=== PATIENT | male | born 1975 | race Caucasian/White ===

== ENCOUNTER → 2018-02-18 | Outpatient (CLI) | payer MEDICAID ==
[2018-02-18 17:32] LABS: Basophils % (A) 1 %; Eosinophils # (A) 0.2 k/uL (0-0.7); Eosinophils % (A) 3 %; HCT 46.3 % (39.0-53.0); HGB 15.8 gm/dL (13.0-17.5); Lymphocytes # (A) 1.2 k/uL (1.0-4.8); Lymphocytes % (A) 24 %; MCH 30.8 pg (25.0-35.0); MCHC 34.2 g/dL (31.0-37.0); MCV 89.9 fL (80.0-100.0); Monocytes # (A) 0.3 k/uL (0-1.0); Monocytes % (A) 7 %; Neutrophils # (A) 3.3 k/uL (1.3-7.7); Neutrophils % (A) 64 %; Platelet Count 187 k/uL (150-450); RBC 5.14 m/uL (4.30-5.90); RDW 13.8 % (11.5-15.5); WBC 5.1 k/uL (3.8-10.6)
[2018-02-19 02:57] LABS: Anion Gap 7.2 mmol/L (4.00-12.00); Calcium 9.4 mg/dL (8.7-10.3); Carbon Dioxide 25.8 mmol/L (21.6-31.8); Potassium 3.7 mmol/L (3.5-5.5)
== END | disposition home or self-care (01) ==
LOC: LABWHC1 16:42
PROVIDERS: ATTEND Urology
DX: Z01.812 Encounter for preprocedural laboratory examination (principal); N43.0 Encysted hydrocele
CPT/HCPCS: 36415; 80048; 85025

== ENCOUNTER 2018-02-25 07:57 | Day surgery (SDC) | payer MEDICAID ==
[2018-02-23 13:56] VITALS: BMI 30.1
--- NOTE | 2018-02-25 06:05 | P.GSHP ---
History of Present Illness H&P Date: 02/22/18 Chief Complaint: Scrotal swelling The patient is a 42-year-old white male with a large left hydrocele, which he developed approximately one year ago. He is symptomatic and he has thus elected to undergo surgical correction. Ultrasound also showed the presence of a smaller right hydrocele, which is not detectable on examination. - Cardiovascular Cardiovascular: Reports high blood pressure - Respiratory Respiratory: Reports cough, Reports dyspnea, Reports wheezing Past Medical History Past Medical History: Asthma, Hypertension - Past Family History Mother Family Medical History: No Reported History Medications and Allergies Home Medications Medication Instructions Recorded Confirmed Type Albuterol Sulfate [Proair Hfa] 1 - 2 puff INHALATION Q6HR PRN 02/23/18 02/23/18 History Budesonide/Formoterol Fumarate 2 puff INHALATION BID 02/23/18 02/23/18 History [Symbicort 160-4.5 Mcg Inhaler] Lisinopril-Hctz 20-25 mg 1 tab PO DAILY 02/23/18 02/23/18 History [Zestoretic 20-25] Montelukast [Singulair] 10 mg PO DAILY 02/23/18 02/23/18 History Allergies Allergy/AdvReac Type Severity Reaction Status Date / Time acetaminophen AdvReac Nausea & Verified 02/23/18 13:48 [From Darvocet-N 100] Vomiting codeine AdvReac Nausea & Verified 02/23/18 13:49 Vomiting propoxyphene AdvReac Nausea & Verified 02/23/18 13:48 [From Darvocet-N 100] Vomiting Surgical - Exam - General well developed, well nourished, no distress - Respiratory normal respiratory effort, clear to auscultation - Cardiovascular Rhythm: regular Abnormal Heart Sounds: no systolic murmur, no diastolic murmur, no rub, no S3 Gallop, no S4 Gallop, no click, no other - Abdomen Abdomen: soft, non tender, no guarding, no rigid, no rebound - Genitourinary normal penis with no external lesions, testicles non-tender left: scrotal mass/hydrocele - Psychiatric oriented to time, oriented to person, oriented to place, speech is normal, memory intact Assessment and Plan (1) Hydrocele of testis Status: Acute Code(s): N43.3 - HYDROCELE, UNSPECIFIED SNOMED Code(s): 48606442 Plan: The patient will undergo left hydrocelectomy. If after performing the left hydrocelectomy it is evident that a right hydrocele is present, a right hydrocelectomy will also be performed. The procedure has been reviewed in detail with the patient. He understands potential risks to include anesthesia, bleeding, infection, testicular injury, and recurrent hydrocele.
[~2018-02-25 07:57] MED LIST: DEXAMETHASONE SOD PHOSPHATE 10 MG/ML 1 ML VIAL IV ONE; LACTATED RINGERS 1,000 ML IV SCH; LIDOCAINE 1% 20 ML VIAL (10MG/ML) FOR IV START INTRADERMA PRN; MIDAZOLAM (PF) 2 MG/2 ML VIAL IV PRN; ONDANSETRON 4 MG/2 ML VIAL IVP ONE; ceFAZolin IN SWFI 2 GM/20 ML SYRINGE IVP ONE; fentaNYL (PF) 50 MCG/ML 2 ML AMP IV PRN
[2018-02-25] MEDS ORDERED: BUPIVACAINE (PF) 0.25% 30 ML VIAL MISCELLANE ONE ×2 (10:08)
[2018-02-25] MEDS ORDERED: SUCCINYLCHOLINE CHLORIDE VIAL 200 MG/10 ML VIAL IV ONE (10:32)
[2018-02-25] MEDS ORDERED: LIDOCAINE 1% INJ 10MG/ML (20 ML MDV) ONE (10:32)
[2018-02-25] MEDS ORDERED: MIDAZOLAM 2 MG/2 ML VIAL ONE (10:32)
[2018-02-25] MEDS ORDERED: PROPOFOL 10 MG/ML 20 ML VIAL IV ONE (10:32)
[2018-02-25] MEDS ORDERED: fentaNYL (PF) 50 MCG/ML 2 ML AMP ONE (10:32)
[2018-02-25] MEDS ORDERED: LACTATED RINGERS 1,000 ML IV ONE (11:01)
[2018-02-25 12:15] VITALS: TEMP 97.5
[2018-02-25 14:11] VITALS: BP 117/78; PULSE 78; RESP 18
--- NOTE | 2018-02-25 14:47 | P.OP ---
Date of Procedure: 02/25/18 Preoperative Diagnosis: Non-communicating left hydrocele Postoperative Diagnosis: Same Procedure(s) Performed: Left hydrocelectomy Anesthesia: LEIDY Surgeon: Titi Hassan Estimated Blood Loss (ml): 30 IV fluids (ml): 900 Pathology: none sent Condition: stable Disposition: PACU Indications for Procedure: The patient is a 42-year-old white male with a large left hydrocele, which he developed approximately one year ago. He is symptomatic and he has thus elected to undergo surgical correction. Ultrasound also showed the presence of a smaller right hydrocele, which is not detectable on examination. Operative Findings: Large non-communicating left hydrocele. No clinical right hydrocele. Description of Procedure: The patient was taken to the operating room and placed in supine position. The external genitalia was prepped and draped sterilely. The scalpel was used to make an anterior scrotal incision. The underlying dartos fascia was incised using the Bovie electrocautery, down to the hydrocele sac. Several veins were noted overlying the sac, and the sac was noted to be very thickened. The hydrocele sac was opened, and approximately 450 mL of clear straw-colored fluid was drained. The hydrocele sac was then opened widely, and the testicle was delivered through the wound. The hydrocele sac was noted to be very thick and vascular. The redundant hydrocele sac was excised. The hydrocele sac edges were then oversewn using 3-0 suture in a running fashion for hemostasis. Excellent hemostasis was attained. The testicle was then returned to the hemiscrotum. The right side was examined, and there was no detectable hydrocele noted. The dartos fascia was closed using 3-0 Vicryl suture in a running fashion. The skin was closed using 3-0 chromic suture in a running fashion. Marcaine was injected subcutaneously around the incision. All sponge and needle counts were correct. Surgical fluffs were placed over the incision, followed by scrotal support. The patient tolerated the procedure well was taken to the recovery was stable condition.
== END 2018-02-25 14:37 | disposition home or self-care (01) ==
LOC: OR 07:57
PROVIDERS: ATTEND Urology
DX: N43.3 Hydrocele, unspecified (principal); I10 Essential (primary) hypertension; J45.909 Unspecified asthma, uncomplicated; Z79.51 Long term (current) use of inhaled steroids; Z79.899 Other long term (current) drug therapy; Z88.5 Allergy status to narcotic agent
CPT/HCPCS: 55040; J2250; J0330; J1100; J2405; J2001; J3010; J2704; J0690

== ENCOUNTER → 2018-04-21 | Outpatient (CLI) | payer MEDICAID ==
--- NOTE | 2018-04-21 16:00 | XR ---
EXAMINATION TYPE: XR chest 2V DATE OF EXAM: 04/21/2018 COMPARISON: NONE HISTORY: Chest pain TECHNIQUE: Frontal and lateral views of the chest are obtained. FINDINGS: There is no focal air space opacity. No evidence for pneumothorax. No pleural effusion. The cardiac silhouette size is within normal limits. The osseous structures are grossly intact. IMPRESSION: 1. No acute cardiopulmonary process.
== END | disposition home or self-care (01) ==
LOC: RADXRMAIN 15:41
PROVIDERS: ATTEND Family Medicine
DX: J45.40 Moderate persistent asthma, uncomplicated (principal)
CPT/HCPCS: 71046

== ENCOUNTER → 2018-09-17 | Outpatient (CLI) | payer MEDICAID ==
--- NOTE | 2018-09-17 11:15 | P.STRESS ---
- Stress Test Note Stress Test Results/Findings: Exam Performed: stress echo exercise Exam Date: 09/17/18 Reason for Exam: CHEST PAIN Height: 6 ft 2 in Weight: 104.326 kg Protocol: DMITRIY Stage: 3 Duration of Exercise: 8:15 Resting Heart Rate: 90 Resting Blood Pressure: 121/84 Maximum Achieved Heart Rate: 158 Maximum Achieved Blood Pressure: 135/45 85% PMHR: 150 100% PMHR: 176 METS: 9.9 Technologist Comment: Stress Test Results/Findings: This is a 42-year-old gentleman with history of hypertension. Since his asthma being evaluated for symptoms of chest pain and shortness of breath. Stress data: Baseline EKG showed sinus rhythm with normal RI interval and QRS duration. Blood pressure at rest is 120/84 with pulse rate of 90. Patient walked on the Dmitriy protocol for 8 minutes and 15 seconds achieving a maximal rate of 158, blood pressure 114/69. EKGs taken during and after the x-ray did not reveal changes of ischemia. Echo data: Baseline echo images show normal wall motion and thickening. Exercise echo images showed augmentation of wall motion and thickening in all the segments. New Final impression: #1. Negative stress test #2. Negative stress echo
== END ==
LOC: RADNMMAIN 09:22
PROVIDERS: ATTEND Family Medicine
DX: R07.89 Other chest pain (principal)
CPT/HCPCS: 93351

== ENCOUNTER 2019-12-31 22:19 | Emergency (ER) | payer MEDICAID ==
--- NOTE | 2019-12-31 22:29 | ED ---
General Adult HPI - General Chief complaint: Extremity Injury, Upper Stated complaint: left extremity pain Source: patient, family, RN notes reviewed, old records reviewed Mode of arrival: ambulatory Limitations: no limitations - History of Present Illness Initial comments: Patient is a 44-year-old male presents emergency Department today with a left ring finger injury. Patient reports he was stepping down from a tree stand and the ring caught on the wrong of the tree stand. Patient reports it pulled off and causes swelling to the finger unable to get the ring off. He is concerned about losing circulation to his finger. Patient reports that he has a laceration underneath the ring that he could not assess due to the swelling and the ring covering the area. He reports his tetanus shot is up-to-date. - Related Data Home Medications Medication Instructions Recorded Confirmed Albuterol Sulfate [Proair Hfa] 1 - 2 puff INHALATION Q6HR PRN 02/23/18 02/25/18 Budesonide/Formoterol Fumarate 2 puff INHALATION BID 02/23/18 02/25/18 [Symbicort 160-4.5 Mcg Inhaler] Lisinopril-Hctz 20-25 mg 1 tab PO DAILY 02/23/18 02/25/18 [Zestoretic 20-25] Montelukast [Singulair] 10 mg PO DAILY 02/23/18 02/25/18 Previous Rx's Medication Instructions Recorded Hydrocodone/Acetaminophen [[place] 1 - 2 each PO Q4HR PRN #10 tab 02/25/18 5-325] Allergies Allergy/AdvReac Type Severity Reaction Status Date / Time codeine AdvReac Nausea & Verified 12/31/19 22:25 Vomiting propoxyphene AdvReac Nausea & Verified 12/31/19 22:25 [From Darvocet-N 100] Vomiting Review of Systems ROS Statement: Those systems with pertinent positive or pertinent negative responses have been documented in the HPI. ROS Other: All systems not noted in ROS Statement are negative. Past Medical History Past Medical History: Asthma, Hypertension History of Any Multi-Drug Resistant Organisms: None Reported Past Surgical History: Hernia Repair Past Psychological History: No Psychological Hx Reported Smoking Status: Never smoker Past Alcohol Use History: Occasional General Exam - General Exam Comments Initial Comments: 44 year male. No distress. Limitations: no limitations General appearance: alert, in no apparent distress Head exam: Present: atraumatic, normocephalic, normal inspection Eye exam: Present: normal appearance, PERRL, EOMI. Absent: scleral icterus, conjunctival injection, periorbital swelling ENT exam: Present: normal exam, mucous membranes moist Neck exam: Present: normal inspection. Absent: tenderness, meningismus, lymphadenopathy Respiratory exam: Present: normal lung sounds bilaterally. Absent: respiratory distress, wheezes, rales, rhonchi, stridor Cardiovascular Exam: Present: regular rate, normal rhythm, normal heart sounds. Absent: systolic murmur, diastolic murmur, rubs, gallop, clicks GI/Abdominal exam: Present: soft, normal bowel sounds. Absent: distended, tenderness, guarding, rebound, rigid Extremities exam: Present: normal inspection, full ROM, normal capillary refill. Absent: tenderness, pedal edema, joint swelling, calf tenderness Left Upper Arm exam: Present: normal inspection, full ROM Elbow exam: Present: normal inspection, full ROM Forearm Wrist exam: Present: normal inspection, full ROM Hand Wrist exam: Present: full ROM, tenderness, swelling (over left ring finger, less than 1cm skin avulsion on DIP ). Absent: normal inspection Neuro motor exam: Present: wrist extension intact, thumb opposition intact, thumb IP flexion intact, thumb adduction intact, fingers 2-5 abduction intact Vascular: Present: normal capillary refill Back exam: Present: normal inspection, full ROM Neurological exam: Present: alert, oriented X3, CN II-XII intact Psychiatric exam: Present: normal affect, normal mood Skin exam: Present: warm, dry, intact, normal color. Absent: rash Course Vital Signs 12/31/19 22:20 Temperature 98.1 F Pulse Rate 80 Respiratory 20 Rate Blood Pressure 142/82 O2 Sat by Pulse 99 Oximetry Procedures - Procedures Initial comment: Patient had a left ring removed with Rafter alis and ring cutter. Patient tolerated procedure well. Full range of motion noted of the finger. There is a 1 cm abrasion on the skin underneath where the ring was that was there prior to ring removal. - Laceration Laceration #1 Size (cm): 1 Description: avulsion (skin avulsion) Depth: simple, single layer Pre-repair: wound explored, irrigated extensively Type of Sutures: other (dermabond) Patient Tolerated Procedure: well, no complications Medical Decision Making - Medical Decision Making 44-year-old male presents with left ring finger injury with swelling to the finger requiring the ring removal. Patient has ring was removed with wrapped her alis and ring cutter. He had a small abrasion underneath the ring that was closed with Dermabond. Patient swelling is improving at this time. Patient will be discharged to follow-up with primary care doctor. Hand x-ray was reviewed and negative for fracture. Disposition Clinical Impression: Ring avulsion injury of finger Disposition: HOME SELF-CARE Condition: Good Instructions (If sedation given, give patient instructions): Abrasion (ED) Additional Instructions: monitor for any signs of infection over the abrasions including redness swelling or drainage. Keep the area clean and dry. Follow-up with primary care doctor symptoms worsen or persist. Ice the finger to help with swelling. Is patient prescribed a controlled substance at d/c from ED?: No Referrals: Rasheed Faulkner DO [Primary Care Provider] - 1-2 days Time of Disposition: 23:38
[2019-12-31] MEDS ORDERED: TOPICAL SKIN ADHESIVE 1 EACH AMP TOPICAL ONE (22:47)
--- NOTE | 2019-12-31 23:19 | XR ---
EXAMINATION TYPE: XR hand complete LT DATE OF EXAM: 12/31/2019 COMPARISON: NONE HISTORY: Pain TECHNIQUE: 3 views FINDINGS: There is mild soft tissue swelling around the PIP joint of the ring finger left hand. I see no fracture nor dislocation. Joint spaces appear normal. Metacarpals are intact. IMPRESSION: Soft tissue swelling. No fracture seen.
[2019-12-31 23:53] VITALS: BP 141/82; PULSE 76; RESP 18; TEMP 98
== END 2019-12-31 23:49 | disposition home or self-care (01) ==
LOC: EC 22:19
DX: S61.205A Unspecified open wound of left ring finger without damage to nail, initial encounter (principal); J45.909 Unspecified asthma, uncomplicated; I10 Essential (primary) hypertension; Z79.899 Other long term (current) drug therapy; Z88.5 Allergy status to narcotic agent; Z88.8 Allergy status to other drugs, medicaments and biological substances; W23.1XXA Caught, crushed, jammed, or pinched between stationary objects, initial encounter
CPT/HCPCS: 12001; 99284

== ENCOUNTER → 2020-02-08 | Outpatient (CLI) | payer MEDICAID | END | disposition home or self-care (01) | LOC: LABWHC1 11:17 | PROVIDERS: ATTEND Family Medicine | DX: Z20.828 Contact with and (suspected) exposure to other viral communicable diseases (principal) | CPT/HCPCS: U0003; C9803 ==

== ENCOUNTER → 2020-07-03 | Outpatient (CLI) | payer MEDICAID ==
--- NOTE | 2020-07-03 09:23 | MR ---
EXAMINATION TYPE: MR lumbar spine wo con DATE OF EXAM: 07/03/2020 COMPARISON: NONE HISTORY: Lower back and sciatic pain running down left leg TECHNIQUE: Multiplanar, multisequence imaging of the lumbar spine is performed without IV contrast. FINDINGS: Sagittal images of the lumbar spine show vertebral body heights to appear satisfactory. Sli ght grade 1 retrolisthesis L4 on L5 and L5 and S1. Disc desiccation L4-L5 and L5-S1 levels with mild disc space narrowing L4-L5 and moderate disc space narrowing L5-S1 levels with mild anterior spurring at these levels. Heterogeneous Modic type II endplate changes left L4-L5 level and right L5-S1 leve l. Small hemangioma right L4 vertebra sagittal image 11. The conus medullaris is normal in position a nd signal ending inferior L1 level. Axial images at T12-L1, L1-L2, L2-L3, and L3-L4 levels all appear within normal limits. Axial images at L4-L5 level show subtle spondylolisthesis and mild facet degenerative changes bilater ally with ligamentum flavum hypertrophy. There is broad-based left paracentral/foraminal disc protrus ion effacing the anterolateral thecal sac along with lateral recess is prominent on axial image 7. Th is is causing mild left-sided anterior inferior neural foraminal narrowing. There is likely some encr oachment on the central left L5 nerve. Disc herniation measures roughly 14 mm transversely. Patent ri ght-sided neural foramina. Axial images at the L5-S1 level show subtle spondylolisthesis with focal central disc protrusion, spi nal canal fairly well maintained. Mild to moderate right greater than left facet arthropathy. Asymmet julio mild right-sided neural foraminal narrowing. Left-sided neural foramen is patent. Paraspinal muscle bulk is maintained. IMPRESSION: Multilevel spondylolisthesis and degenerative changes lower lumbar spine as detailed abov e. Most prominent disc herniation L4-L5 level likely accounts for patient's left-sided radiculopathy type symptoms.
== END | disposition home or self-care (01) ==
LOC: RADMRIMAIN 08:07
PROVIDERS: ATTEND Family Medicine
DX: M51.16 Intervertebral disc disorders with radiculopathy, lumbar region (principal); M47.26 Other spondylosis with radiculopathy, lumbar region; M43.16 Spondylolisthesis, lumbar region; M99.73 Connective tissue and disc stenosis of intervertebral foramina of lumbar region
CPT/HCPCS: 72148

== ENCOUNTER 2021-11-08 18:57 | Emergency (ER) | payer MEDICAID ==
[2021-11-08 19:56] VITALS: TEMP 97.7
[2021-11-08] MEDS ORDERED: ONDANSETRON 4 MG/2 ML VIAL IVP STA (21:50)
[2021-11-08] MEDS ORDERED: SODIUM CHLORIDE 0.9% 2,000 ML IV STA (21:50)
[2021-11-08] MEDS ORDERED: KETOROLAC 15 MG/ML 1 ML VIAL IVP STA (21:50)
--- NOTE | 2021-11-08 22:22 | CT ---
EXAMINATION TYPE: CT abdomen pelvis wo con DATE OF EXAM: 11/08/2021 COMPARISON: None HISTORY: Left side Flank pain. Blood in urine CT DLP: 779.4 mGycm Automated exposure control for dose reduction was used. Images obtained from the diaphragm to the floor of the pelvis with no contrast. There is some mild atelectasis at the lung bases. Heart size is normal. No pericardial effusion. Live r spleen pancreas and stomach appear intact. The bile ducts are nondilated. Gallbladder has normal si ze. There is no adrenal mass. Kidneys of normal size and contour. There is mild left-sided hydronephrosis and 1 mm calculus in the distal left ureter. There is no retroperitoneal adenopathy. Abdominal aorta appears normal. Bladder distends smoothly. No free fluid in the pelvis. No pelvic mass. Appendix is posterior and appears normal. There is no mesenteric edema. No ascites or free air. No sign of a magdiel l obstruction. The lumbar vertebra have normal alignment. There is mild narrowing at L5-S1 disc space. No compressio n fracture. Bony pelvis is intact. The hip joints are intact. IMPRESSION: Left-sided mild hydronephrosis and hydroureter with a 1 mm calculus in the distal left ureter.
[2021-11-08 22:56] LABS: Basophils % (A) 0 %; Eosinophils # (A) 0.1 k/uL (0-0.7); Eosinophils % (A) 1 %; HCT 50.2 % (39.0-53.0); HGB 16.8 gm/dL (13.0-17.5); Lymphocytes # (A) 0.7 k/uL (1.0-4.8); Lymphocytes % (A) 5 %; MCH 29.9 pg (25.0-35.0); MCHC 33.4 g/dL (31.0-37.0); MCV 89.6 fL (80.0-100.0); Mean Platelet Volume 9.2; Monocytes # (A) 0.5 k/uL (0-1.0); Monocytes % (A) 4 %; Neutrophils # (A) 11.2 k/uL (1.3-7.7); Neutrophils % (A) 90 %; Platelet Count 225 k/uL (150-450); RDW 12.8 % (11.5-15.5); WBC 12.5 k/uL (3.8-10.6)
[2021-11-08 23:09] LABS: ALT 28 U/L (4-49); AST 27 U/L (17-59); African American GFR (CKD) >90 (>60 ml/min/1.73 sqM); Albumin 4.9 g/dL (3.5-5.0); Alkaline Phosphatase 102 U/L (38-126); Anion Gap 15 mmol/L; Blood Urea Nitrogen 20 mg/dL (9-20); Calcium 9.4 mg/dL (8.4-10.2); Carbon Dioxide 23 mmol/L (22-30); Chloride 99 mmol/L (98-107); Glucose 129 mg/dL (74-99); Lipase 29 U/L (23-300); Non-African American GFR(CKD) 83 (>60 ml/min/1.73 sqM); Potassium 3.8 mmol/L (3.5-5.1); Sodium 137 mmol/L (137-145); Total Bilirubin 0.8 mg/dL (0.2-1.3); Total Protein 7.7 g/dL (6.3-8.2)
[2021-11-08] MEDS ORDERED: TAMSULOSIN 0.4 MG CAP.ER.24H PO STA (23:15)
--- NOTE | 2021-11-08 23:20 | ED ---
Back Pain HPI - General Chief Complaint: Back Pain/Injury Stated Complaint: Back Pain,Vomiting Time Seen by Provider: 11/08/21 21:37 Source: patient - History of Present Illness Initial Comments: She is a 38-year-old male who presents to the emergency department with a chief complaint of left back pain. Patient states the pain started around 10:30 this morning. Denies injury. States he has history of back pain however this feels different than his typical back pain. Pain is sharp in the lower back. Associated with nausea and one episode of vomiting. Patient states there is blood in his urine. Denies burning with urination, fever, chills. Denies history of kidney stone or infection. - Related Data Home Medications Medication Instructions Recorded Confirmed Albuterol Sulfate [Proair Hfa] 1 - 2 puff INHALATION Q6HR PRN 02/23/18 02/25/18 Budesonide/Formoterol Fumarate 2 puff INHALATION BID 02/23/18 02/25/18 [Symbicort 160-4.5 Mcg Inhaler] Lisinopril-Hctz 20-25 mg 1 tab PO DAILY 02/23/18 02/25/18 [Zestoretic 20-25] Montelukast [Singulair] 10 mg PO DAILY 02/23/18 02/25/18 Previous Rx's Medication Instructions Recorded Hydrocodone/Acetaminophen [[place] 1 - 2 each PO Q4HR PRN #10 tab 02/25/18 5-325] Ketorolac [Toradol] 10 mg PO Q8HR PRN #21 tab 11/08/21 Tamsulosin [Flomax] 0.4 mg PO DAILY #7 cap 11/08/21 Allergies Allergy/AdvReac Type Severity Reaction Status Date / Time codeine AdvReac Nausea & Verified 11/08/21 19:56 Vomiting propoxyphene AdvReac Nausea & Verified 11/08/21 19:56 [From Darvocet-N 100] Vomiting Review of Systems ROS Statement: Those systems with pertinent positive or pertinent negative responses have been documented in the HPI. ROS Other: All systems not noted in ROS Statement are negative. Past Medical History Past Medical History: Asthma, Hypertension History of Any Multi-Drug Resistant Organisms: None Reported Past Surgical History: Hernia Repair Past Psychological History: No Psychological Hx Reported Smoking Status: Never smoker Past Alcohol Use History: Occasional General Exam General appearance: alert, in no apparent distress Respiratory exam: Present: normal lung sounds bilaterally. Absent: respiratory distress, wheezes, rales, rhonchi, stridor Cardiovascular Exam: Present: regular rate, normal rhythm, normal heart sounds. Absent: systolic murmur, diastolic murmur, rubs, gallop, clicks GI/Abdominal exam: Present: soft, normal bowel sounds. Absent: distended, tenderness, guarding, rebound, rigid Back exam: Absent: CVA tenderness (L) Neurological exam: Present: alert, oriented X3, CN II-XII intact Psychiatric exam: Present: normal affect, normal mood Course Vital Signs 11/08/21 19:51 Temperature 97.7 F Pulse Rate 80 Respiratory 18 Rate Blood Pressure 144/80 O2 Sat by Pulse 96 Oximetry Medical Decision Making - Medical Decision Making This is a 46-year-old male who presents with sharp lower left back pain and nausea. Thorough history and examination were performed. Laboratory studies obtained. Mild leukocytosis at 12.5. Kidney function is normal. CT of the abdomen and pelvis without contrast shows left-sided mild hydronephrosis and hydroureter with 1 mm calculus distal left ureter. Pain controlled. Flomax given. Declines Zofran. Patient feels that he may have passed a stone while urinating. Patient will be discharged. Dr. Louis is my attending. - Lab Data Result diagrams: 11/08/21 22:45 11/08/21 22:45 Lab Results 11/08/21 11/08/21 Range/Units 22:45 22:45 WBC 12.5 H (3.8-10.6) k/uL RBC 5.60 (4.30-5.90) m/uL Hgb 16.8 (13.0-17.5) gm/dL Hct 50.2 (39.0-53.0) % MCV 89.6 (80.0-100.0) fL MCH 29.9 (25.0-35.0) pg MCHC 33.4 (31.0-37.0) g/dL RDW 12.8 (11.5-15.5) % Plt Count 225 (150-450) k/uL MPV 9.2 Neutrophils % 90 % Lymphocytes % 5 % Monocytes % 4 % Eosinophils % 1 % Basophils % 0 % Neutrophils # 11.2 H (1.3-7.7) k/uL Lymphocytes # 0.7 L (1.0-4.8) k/uL Monocytes # 0.5 (0-1.0) k/uL Eosinophils # 0.1 (0-0.7) k/uL Basophils # 0.0 (0-0.2) k/uL Sodium 137 (137-145) mmol/L Potassium 3.8 (3.5-5.1) mmol/L Chloride 99 (98-107) mmol/L Carbon Dioxide 23 (22-30) mmol/L Anion Gap 15 mmol/L BUN 20 (9-20) mg/dL Creatinine 1.06 (0.66-1.25) mg/dL Est GFR (CKD-EPI)AfAm >90 (>60 ml/min/1.73 sqM) Est GFR (CKD-EPI)NonAf 83 (>60 ml/min/1.73 sqM) Glucose 129 H (74-99) mg/dL Calcium 9.4 (8.4-10.2) mg/dL Total Bilirubin 0.8 (0.2-1.3) mg/dL AST 27 (17-59) U/L ALT 28 (4-49) U/L Alkaline Phosphatase 102 (38-126) U/L Total Protein 7.7 (6.3-8.2) g/dL Albumin 4.9 (3.5-5.0) g/dL Lipase 29 (23-300) U/L Disposition Clinical Impression: Kidney stone on left side Disposition: HOME SELF-CARE Condition: Good Instructions (If sedation given, give patient instructions): Kidney Stones (ED) Additional Instructions: Take medication as directed. Increase fluid intake significantly which will help pass the stone. Use urine strainer in attempt to collect stone. Follow-up with urology in 1-2 days. Return to the emergency department if you experience new, concerning, or worsening symptoms. Prescriptions: Tamsulosin [Flomax] 0.4 mg PO DAILY #7 cap Ketorolac [Toradol] 10 mg PO Q8HR PRN #21 tab PRN Reason: Pain Is patient prescribed a controlled substance at d/c from ED?: No Referrals: Rasheed Faulkner DO [Primary Care Provider] - 1-2 days Ronnie Martin MD [STAFF PHYSICIAN] - 1-2 days Time of Disposition: 23:20
[2021-11-09 00:43] VITALS: BP 116/87; PULSE 72; RESP 16
== END 2021-11-09 00:43 | disposition home or self-care (01) ==
LOC: EC 18:57
DX: N20.0 Calculus of kidney (principal); J45.909 Unspecified asthma, uncomplicated; I10 Essential (primary) hypertension; Z88.5 Allergy status to narcotic agent; Z79.51 Long term (current) use of inhaled steroids; Z79.899 Other long term (current) drug therapy
CPT/HCPCS: 36415; 80053; 83690; 85025; 74176; 99284; 96374; 96361; J1885

== ENCOUNTER → 2022-03-21 | Outpatient (CLI) | payer MEDICAID ==
[2022-03-21 12:09] LABS: Basophils # (A) 0.05 X 10*3/uL (0.00-0.10); Eosinophils % (A) 1.9 %; HCT 51.3 % (39.6-50.0); HGB 16.9 g/dL (13.0-17.0); Immature Grans, Automated 0.4 %; Lymphocytes # (A) 1.23 X 10*3/uL (0.90-5.00); Lymphocytes % (A) 23.5 %; MCHC 32.9 g/dL (32.0-37.0); Mean Platelet Volume 11.8 fL (9.5-12.2); Monocytes # (A) 0.46 X 10*3/uL (0.20-1.00); Monocytes % (A) 8.8 %; NRBC Per 100 WBC 0 /100 WBCS (0.0-0.0); Neutrophils # (A) 3.37 X 10*3/uL (1.80-7.70); Neutrophils % (A) 64.4 %; Platelet Count 215 X 10*3/uL (140-440); RBC 5.64 X 10*6/uL (4.40-5.60); RDW 13.1 % (11.5-14.5); WBC 5.23 X 10*3/uL (4.50-10.00)
[2022-03-21 12:11] LABS: Chol/HDL Ratio 3.96 Ratio; LDL Cholesterol,Calculated 111.4 mg/dL (0.0-131.0); VLDL Calculation 18.66 mg/dL (5.00-40.00)
== END | disposition home or self-care (01) ==
LOC: LABWHC1 07:21
PROVIDERS: ATTEND Family Medicine
DX: Z00.00 Encounter for general adult medical examination without abnormal findings (principal); D72.829 Elevated white blood cell count, unspecified; R73.9 Hyperglycemia, unspecified
CPT/HCPCS: 36415; 80061; 83036; 85025

== ENCOUNTER 2022-07-13 19:30 | Observation (INO) | payer MEDICAID ==
[2022-07-13] MEDS ORDERED: ALBUTEROL NEBULIZED 2.5 MG/3 ML INHALATION STA (19:47)
[2022-07-13] MEDS ORDERED: DEXAMETHASONE SOD PHOSPHATE 10 MG/ML 1 ML VIAL IV STA (19:47)
[2022-07-13] MEDS ORDERED: IPRATROPIUM 0.5 MG/2.5 ML NEBU INHALATION STA (19:47)
--- NOTE | 2022-07-13 19:50 | ED ---
General Adult HPI - General Chief complaint: Shortness of Breath Stated complaint: SOB Time Seen by Provider: 07/13/22 19:37 Source: patient Mode of arrival: wheelchair - History of Present Illness Initial comments: Dictation was produced using [employer] dictation software. please excuse any grammatical, word or spelling errors. Chief Complaint: 46-year-old male with history of asthma presents to the emergency room for 2 days of shortness of breath History of Present Illness: Patient is a 38-year-old male who has past medical history of asthma. He states that he gets bronchitis often. Reports that her last 48 hours he's been having shortness of breath. Patient states that since 2 days ago started to feel short of breath worse today. Denies any cough. States that it does have some chest congestion does little uncomfortable whenever he takes a deep breath. Denies any cough. No runny nose or sore throat. The ROS documented in this emergency department record has been reviewed and confirmed by me. Those systems with pertinent positive or negative responses have been documented in the HPI. All other systems are other negative and/or noncontributory. - Related Data Home Medications Medication Instructions Recorded Confirmed Montelukast [Singulair] 10 mg PO HS 02/23/18 07/13/22 Albuterol Sulfate [Proventil Hfa] 2 puff INHALATION RT-Q6H PRN 07/13/22 07/13/22 Candesartan/Hydrochlorothiazid 1 tab PO DAILY 07/13/22 07/13/22 [Candesartan-Hctz 32-25 mg Tab] Ibuprofen [Motrin Ib] 600 mg PO DAILY PRN 07/13/22 07/13/22 Previous Rx's Medication Instructions Recorded methylPREDNISolone Dose Pack 4 mg PO DIRECTED #1 packet 07/13/22 [Medrol Dose Pack] Allergies Allergy/AdvReac Type Severity Reaction Status Date / Time codeine AdvReac Nausea & Verified 07/13/22 21:28 Vomiting propoxyphene AdvReac Nausea & Verified 07/13/22 21:28 [From [place]-N 100] Vomiting Review of Systems ROS Statement: Those systems with pertinent positive or pertinent negative responses have been documented in the HPI. ROS Other: All systems not noted in ROS Statement are negative. Past Medical History Past Medical History: Asthma, Hypertension History of Any Multi-Drug Resistant Organisms: None Reported Past Surgical History: Hernia Repair Past Psychological History: No Psychological Hx Reported Smoking Status: Never smoker Past Alcohol Use History: Occasional General Exam - General Exam Comments Initial Comments: PHYSICAL EXAM: General Impression: Alert and oriented x3, not in acute distress HEENT: Normocephalic atraumatic, extra-ocular movements intact, pupils equal and reactive to light bilaterally, mucous membranes moist. Cardiovascular: Heart regular rate and rhythm Chest: Able to complete full sentences, no retractions, no tachypnea, poor air exchange with diffuse wheezing Abdomen: abdomen soft, non-tender, non-distended, no organomegaly Musculoskeletal: Pulses present and equal in all extremities, no peripheral edema Motor: no focal deficits noted Neurological: CN II-XII grossly intact, no focal motor or sensory deficits noted Skin: Intact with no visualized rashes Psych: Normal affect and mood Course Vital Signs 07/13/22 07/13/22 07/13/22 19:32 20:05 20:40 Temperature 98.3 F Pulse Rate 113 H 94 120 H Respiratory 24 Rate Blood Pressure 133/71 O2 Sat by Pulse 90 L Oximetry 07/13/22 21:30 Temperature Pulse Rate 112 H Respiratory 18 Rate Blood Pressure 112/65 O2 Sat by Pulse 94 L Oximetry EKG Findings - EKG Comments: EKG Findings:: My EKG interpretation: Ventricular rate 104, sinus tachycardia,. 155, QRS 90, QTC 41. No VA prolongation, no QTC prolongation, no ST or T-wave changes noted. EKG compared to stress EKG from 09/17/2018 showing no changes. Overall, this EKG is unremarkable Medical Decision Making - Medical Decision Making Was pt. sent in by a medical professional or institution (, PA, SITE INSPECTOR, urgent care, hospital, or intermediate...) When possible be specific @ -No Did you speak to anyone other than the patient for history (EMS, parent, family, police, friend...)? What history was obtained from this source @ -No Did you review nursing and triage notes (agree or disagree)? Why? @ -I reviewed and agree with nursing and triage notes Were old charts reviewed (outside hosp., previous admission, EMS record, old EKG, old radiological studies, urgent care reports/EKG's, intermediate records)? Report findings @ -No old charts were reviewed Differential Diagnosis (chest pain, altered mental status, abdominal pain women, abdominal pain men, vaginal bleeding, musculoskeletal, weakness, fever, dyspnea, syncope, headache, dizziness, GI bleed, back pain, seizure, CVA, palpatations, mental health)? @ -Differential Dyspnea: Coronary syndrome, arrhythmia, tamponade, asthma, COPD, pulmonary embolism, pneumonia, pneumothorax, pulmonary effusion, anaphylaxis, diabetic ketoacidosis, flailed chest, pulmonary contusion, diaphragmatic rupture, anemia, neuromuscular, this is not meant to be an all-inclusive list. EKG interpreted by me (3pts min.). @ -None done X-rays interpreted by me (1pt min.). @ -Nonacute CT interpreted by me (1pt min.). @ -Negative for pulmonary embolism. No lung parenchymal abnormalities U/S interpreted by me (1pt. min.). @ -None done What testing was considered but not performed or refused? (CT, X-rays, U/S, labs)? Why? @ -None What meds were considered but not given or refused? Why? @ -None Did you discuss the management of the patient with other professionals (professionals i.e. , PA, SITE INSPECTOR, lab, RT, psych nurse, social science instructor, car sealer, teacher, senior compliance officer, rn case management)? Give summary @ -No Was smoking cessation discussed for >3mins.? @ -No Was critical care preformed (if so, how long)? @ -No Were there social determinants of health that impacted care today? How? (Homelessness, low income, unemployed, alcoholism, drug addiction, transportation, low edu. Level, literacy, decrease access to med. care, usp, rehab)? @ -No Was there de-escalation of care discussed even if they declined (Discuss DNR or withdrawal of care, Hospice)? DNR status @ -No What co-morbidities impacted this encounter? (DM, HTN, Smoking, COPD, CAD, Cancer, CVA, ARF, Chemo, Hep., AIDS, mental health diagnosis, sleep apnea, morbid obesity)? @ -None Was patient admitted / discharged? Hospital course, mention meds given and route, prescriptions, significant lab abnormalities, going to OR and other pertinent info. @ -Old male with 48 hours of dyspnea is a history of asthma. Vital signs upon arrival shows tachycardia 113. He had a 90% oxygen saturation on room air. Rest vital signs within acceptable limits. Patient given breathing treatment which improved his symptoms. Labs obtained. D-dimer is elevated due to patient having borderline low oxygen and tachycardic. D-dimer is elevated at 1.27. Rest of labs with acceptable limits. CT angiography was negative for pulmonary embolism. Patient reevaluated at bedside at 10:00 5 beats stable medical condition. His symptoms are improved after breathing treatment. Patient given Decadron. He'll be given prescription for Medrol Dosepak and discharged. Undiagnosed new problem with uncertain prognosis? @ -No Drug Therapy requiring intensive monitoring for toxicity (Heparin, Nitro, Insulin, Cardizem)? @ -No Were any procedures done? @ -No Diagnosis/symptom? Acute, or Chronic, or Acute on Chronic? Uncomplicated (wi thout systemic symptoms) or Complicated (systemic symptoms)? @ -1. Asthma exacerbation Side effects of treatment? @ -No Exacerbation, Progression, or Severe Exacerbation? @ -No Poses a threat to life or bodily function? How? (Chest pain, [place], [place], pneumonia, PE, COPD, DKA, ARF, appy, cholecystitis, CVA, Diverticulitis, Homicidal, Suicidal, threat to staff... and all critical care pts) @ -yes - Lab Data Result diagrams: 07/13/22 19:50 07/13/22 19:52 Lab Results 07/13/22 07/13/22 07/13/22 Range/Units 19:50 19:52 19:52 WBC 8.1 (3.8-10.6) k/uL RBC 5.51 (4.30-5.90) m/uL Hgb 16.3 (13.0-17.5) gm/dL Hct 48.9 (39.0-53.0) % MCV 88.8 (80.0-100.0) fL MCH 29.6 (25.0-35.0) pg MCHC 33.3 (31.0-37.0) g/dL RDW 12.9 (11.5-15.5) % Plt Count 179 (150-450) k/uL MPV 9.1 Neutrophils % 85 % Lymphocytes % 6 % Monocytes % 5 % Eosinophils % 2 % Basophils % 1 % Neutrophils # 6.9 (1.3-7.7) k/uL Lymphocytes # 0.5 L (1.0-4.8) k/uL Monocytes # 0.4 (0-1.0) k/uL Eosinophils # 0.2 (0-0.7) k/uL Basophils # 0.1 (0-0.2) k/uL PT 10.2 (9.0-12.0) sec INR 1.0 (<1.2) APTT 24.1 (22.0-30.0) sec D-Dimer 1.27 H (<0.60) mg/L FEU Sodium 139 (137-145) mmol/L Potassium 3.4 L (3.5-5.1) mmol/L Chloride 107 (98-107) mmol/L Carbon Dioxide 20 L (22-30) mmol/L Anion Gap 12 mmol/L BUN 23 H (9-20) mg/dL Creatinine 0.83 (0.66-1.25) mg/dL Est GFR (CKD-EPI)AfAm >90 (>60 ml/min/1.73 sqM) Est GFR (CKD-EPI)NonAf >90 (>60 ml/min/1.73 sqM) Glucose 118 H (74-99) mg/dL Plasma Lactic Acid Mauro (0.7-2.0) mmol/L Calcium 8.9 (8.4-10.2) mg/dL Magnesium 1.8 (1.6-2.3) mg/dL Total Bilirubin 1.0 (0.2-1.3) mg/dL AST 34 (17-59) U/L ALT 36 (4-49) U/L Alkaline Phosphatase 92 (38-126) U/L Troponin I (0.000-0.034) ng/mL NT-Pro-B Natriuret Pep pg/mL Total Protein 7.2 (6.3-8.2) g/dL Albumin 4.3 (3.5-5.0) g/dL 07/13/22 07/13/22 07/13/22 Range/Units 19:52 19:52 19:52 WBC (3.8-10.6) k/uL RBC (4.30-5.90) m/uL Hgb (13.0-17.5) gm/dL Hct (39.0-53.0) % MCV (80.0-100.0) fL MCH (25.0-35.0) pg MCHC (31.0-37.0) g/dL RDW (11.5-15.5) % Plt Count (150-450) k/uL MPV Neutrophils % % Lymphocytes % % Monocytes % % Eosinophils % % Basophils % % Neutrophils # (1.3-7.7) k/uL Lymphocytes # (1.0-4.8) k/uL Monocytes # (0-1.0) k/uL Eosinophils # (0-0.7) k/uL Basophils # (0-0.2) k/uL PT (9.0-12.0) sec INR (<1.2) APTT (22.0-30.0) sec D-Dimer (<0.60) mg/L FEU Sodium (137-145) mmol/L Potassium (3.5-5.1) mmol/L Chloride (98-107) mmol/L Carbon Dioxide (22-30) mmol/L Anion Gap mmol/L BUN (9-20) mg/dL Creatinine (0.66-1.25) mg/dL Est GFR (CKD-EPI)AfAm (>60 ml/min/1.73 sqM) Est GFR (CKD-EPI)NonAf (>60 ml/min/1.73 sqM) Glucose (74-99) mg/dL Plasma Lactic Acid Mauro 1.3 (0.7-2.0) mmol/L Calcium (8.4-10.2) mg/dL Magnesium (1.6-2.3) mg/dL Total Bilirubin (0.2-1.3) mg/dL AST (17-59) U/L ALT (4-49) U/L Alkaline Phosphatase (38-126) U/L Troponin I <0.012 (0.000-0.034) ng/mL NT-Pro-B Natriuret Pep 36 pg/mL Total Protein (6.3-8.2) g/dL Albumin (3.5-5.0) g/dL Disposition Clinical Impression: Asthma Disposition: HOME SELF-CARE Condition: Fair Instructions (If sedation given, give patient instructions): Asthma (ED) Prescriptions: methylPREDNISolone Dose Pack [Medrol Dose Pack] 4 mg PO DIRECTED #1 packet Is patient prescribed a controlled substance at d/c from ED?: No Referrals: Rasheed Faulkner DO [Primary Care Provider] - 1-2 days Time of Disposition: 21:45
[2022-07-13 20:36] LABS: ALT 36 U/L (4-49); AST 34 U/L (17-59); African American GFR (CKD) >90 (>60 ml/min/1.73 sqM); Albumin 4.3 g/dL (3.5-5.0); Alkaline Phosphatase 92 U/L (38-126); Anion Gap 12 mmol/L; Blood Urea Nitrogen 23 mg/dL (9-20); Calcium 8.9 mg/dL (8.4-10.2); Carbon Dioxide 20 mmol/L (22-30); Chloride 107 mmol/L (98-107); Glucose 118 mg/dL (74-99); Magnesium 1.8 mg/dL (1.6-2.3); Non-African American GFR(CKD) >90 (>60 ml/min/1.73 sqM); Potassium 3.4 mmol/L (3.5-5.1); Sodium 139 mmol/L (137-145); Total Protein 7.2 g/dL (6.3-8.2)
[2022-07-13 20:40] LABS: Basophils # (A) 0.1 k/uL (0-0.2); Basophils % (A) 1 %; Eosinophils # (A) 0.2 k/uL (0-0.7); Eosinophils % (A) 2 %; HCT 48.9 % (39.0-53.0); HGB 16.3 gm/dL (13.0-17.5); Lymphocytes # (A) 0.5 k/uL (1.0-4.8); Lymphocytes % (A) 6 %; MCH 29.6 pg (25.0-35.0); MCHC 33.3 g/dL (31.0-37.0); MCV 88.8 fL (80.0-100.0); Mean Platelet Volume 9.1; Monocytes # (A) 0.4 k/uL (0-1.0); Monocytes % (A) 5 %; Neutrophils # (A) 6.9 k/uL (1.3-7.7); Neutrophils % (A) 85 %; Platelet Count 179 k/uL (150-450); RBC 5.51 m/uL (4.30-5.90); RDW 12.9 % (11.5-15.5); WBC 8.1 k/uL (3.8-10.6)
[2022-07-13 20:49] LABS: Partial Thromboplastin Time 24.1 sec (22.0-30.0); Prothrombin Time 10.2 sec (9.0-12.0)
--- NOTE | 2022-07-13 20:56 | XR ---
EXAMINATION TYPE: XR chest 2V DATE OF EXAM: 07/13/2022 8:46 PM COMPARISON: Chest x-ray 02/18/2019 TECHNIQUE: XR chest 2V . CLINICAL INDICATION:Male, 46 years old with history of dyspnea; FINDINGS: Lungs/Pleura: There is no evidence of pleural effusion, focal consolidation, or pneumothorax. Pulmonary vascularity: Unremarkable. Heart/mediastinum: Cardiomediastinal silhouette is unremarkable. Musculoskeletal: No acute osseous pathology. IMPRESSION: No acute cardiopulmonary disease/process.
--- NOTE | 2022-07-13 21:40 | CT ---
EXAMINATION TYPE: CT angio chest CT DLP: 583.2 mGycm, Automated exposure control for dose reduction was used. DATE OF EXAM: 07/13/2022 9:21 PM COMPARISON: Chest x-ray 07/13/2022, CT abdomen pelvis 11/08/2021 CLINICAL INDICATION:Male, 46 years old with history of positive D-dimer; eleavted d-dimer, SOB TECHNIQUE/CONTRAST: CTA scan of the thorax is performed with IV Contrast, patient injected with 100 mL of Isovue 300, pul monary embolism protocol. MIP images are created and reviewed. FINDINGS: Examination is limited due to contrast bolus timing. Pulmonary Artery: There is no evidence for a central filling defect within the pulmonary vasculature to suggest acute pulmonary embolism. Limited evaluation of the segmental and subsegmental branches se condary to bolus timing. The pulmonary artery is of normal size. Lungs/Pleura: Posterior dependent subsegmental atelectasis is noted. Streaky atelectasis of the anter ior segments of the right lower lobe and anterior left lung base. No pneumothorax or pleural effusion . Airway: Large airways are patent. Heart: Heart is within normal limits for size.. Vasculature: No evidence of aortic aneurysm. Mediastinum: No gross evidence of adenopathy. Musculoskeletal: No acute osseous abnormalities Soft Tissues: Unremarkable. Lower neck: No significant findings. Upper Abdomen: No significant findings. IMPRESSION: 1. No evidence of central pulmonary embolism. Limited evaluation of the segmental and subsegmental br anches. 2. Multiple focal areas of subsegmental atelectasis without focal consolidation.
[2022-07-13] MEDS ORDERED: NALOXONE 0.4 MG/ML 1 ML VIAL IV PRN (22:35)
--- NOTE | 2022-07-13 22:35 | ED ---
Medical Decision Making - Medical Decision Making Patient was having discharged vitals performed when his oxygen levels stayed in the low 90s. Ambulatory pulse ox was performed. After approximately 40-50 yards walking his oxygen dropped to 89%. Patient placed back on nasal cannula oxygen. Disposition options are discussed patient agreeable with admission with pulmonary consultation. - Lab Data Result diagrams: 07/13/22 19:50 07/13/22 19:52 Lab Results 07/13/22 07/13/22 07/13/22 Range/Units 19:50 19:52 19:52 WBC 8.1 (3.8-10.6) k/uL RBC 5.51 (4.30-5.90) m/uL Hgb 16.3 (13.0-17.5) gm/dL Hct 48.9 (39.0-53.0) % MCV 88.8 (80.0-100.0) fL MCH 29.6 (25.0-35.0) pg MCHC 33.3 (31.0-37.0) g/dL RDW 12.9 (11.5-15.5) % Plt Count 179 (150-450) k/uL MPV 9.1 Neutrophils % 85 % Lymphocytes % 6 % Monocytes % 5 % Eosinophils % 2 % Basophils % 1 % Neutrophils # 6.9 (1.3-7.7) k/uL Lymphocytes # 0.5 L (1.0-4.8) k/uL Monocytes # 0.4 (0-1.0) k/uL Eosinophils # 0.2 (0-0.7) k/uL Basophils # 0.1 (0-0.2) k/uL PT 10.2 (9.0-12.0) sec INR 1.0 (<1.2) APTT 24.1 (22.0-30.0) sec D-Dimer 1.27 H (<0.60) mg/L FEU Sodium 139 (137-145) mmol/L Potassium 3.4 L (3.5-5.1) mmol/L Chloride 107 (98-107) mmol/L Carbon Dioxide 20 L (22-30) mmol/L Anion Gap 12 mmol/L BUN 23 H (9-20) mg/dL Creatinine 0.83 (0.66-1.25) mg/dL Est GFR (CKD-EPI)AfAm >90 (>60 ml/min/1.73 sqM) Est GFR (CKD-EPI)NonAf >90 (>60 ml/min/1.73 sqM) Glucose 118 H (74-99) mg/dL Plasma Lactic Acid Mauro (0.7-2.0) mmol/L Calcium 8.9 (8.4-10.2) mg/dL Magnesium 1.8 (1.6-2.3) mg/dL Total Bilirubin 1.0 (0.2-1.3) mg/dL AST 34 (17-59) U/L ALT 36 (4-49) U/L Alkaline Phosphatase 92 (38-126) U/L Troponin I (0.000-0.034) ng/mL NT-Pro-B Natriuret Pep pg/mL Total Protein 7.2 (6.3-8.2) g/dL Albumin 4.3 (3.5-5.0) g/dL 07/13/22 07/13/22 07/13/22 Range/Units 19:52 19:52 19:52 WBC (3.8-10.6) k/uL RBC (4.30-5.90) m/uL Hgb (13.0-17.5) gm/dL Hct (39.0-53.0) % MCV (80.0-100.0) fL MCH (25.0-35.0) pg MCHC (31.0-37.0) g/dL RDW (11.5-15.5) % Plt Count (150-450) k/uL MPV Neutrophils % % Lymphocytes % % Monocytes % % Eosinophils % % Basophils % % Neutrophils # (1.3-7.7) k/uL Lymphocytes # (1.0-4.8) k/uL Monocytes # (0-1.0) k/uL Eosinophils # (0-0.7) k/uL Basophils # (0-0.2) k/uL PT (9.0-12.0) sec INR (<1.2) APTT (22.0-30.0) sec D-Dimer (<0.60) mg/L FEU Sodium (137-145) mmol/L Potassium (3.5-5.1) mmol/L Chloride (98-107) mmol/L Carbon Dioxide (22-30) mmol/L Anion Gap mmol/L BUN (9-20) mg/dL Creatinine (0.66-1.25) mg/dL Est GFR (CKD-EPI)AfAm (>60 ml/min/1.73 sqM) Est GFR (CKD-EPI)NonAf (>60 ml/min/1.73 sqM) Glucose (74-99) mg/dL Plasma Lactic Acid Mauro 1.3 (0.7-2.0) mmol/L Calcium (8.4-10.2) mg/dL Magnesium (1.6-2.3) mg/dL Total Bilirubin (0.2-1.3) mg/dL AST (17-59) U/L ALT (4-49) U/L Alkaline Phosphatase (38-126) U/L Troponin I <0.012 (0.000-0.034) ng/mL NT-Pro-B Natriuret Pep 36 pg/mL Total Protein (6.3-8.2) g/dL Albumin (3.5-5.0) g/dL Disposition Clinical Impression: Asthma, Hypoxia Disposition: ADMITTED IP TO THIS HOSP Condition: Fair Instructions (If sedation given, give patient instructions): Asthma (ED) Prescriptions: methylPREDNISolone Dose Pack [Medrol Dose Pack] 4 mg PO DIRECTED #1 packet Is patient prescribed a controlled substance at d/c from ED?: No Referrals: Rasheed Faulkner DO [Primary Care Provider] - 1-2 days Decision Time: 22:35
[2022-07-13] MEDS ORDERED: ALBUTEROL NEBULIZED 2.5 MG/3 ML INHALATION PRN (22:36)
[2022-07-13] MEDS: SODIUM CHLORIDE 0.9% 1,000 ML IV SCH (23:59)
[2022-07-14] MEDS ORDERED: IPRATROPIUM-ALBUTEROL 3 ML NEB INHALATION PRN (02:01)
--- NOTE | 2022-07-14 02:06 | P.CNPUL ---
History of Present Illness Consult date: 07/14/22 Requesting physician: Raoul Vallejo Reason for consult: asthma Chief complaint: Shortness of breath and wheezing History of present illness: I'm seeing this patient in new consultation today 07/14/2022 for an acute asthma exacerbation. Patient is a 46-year-old white male with past medical history significant for asthma, hypertension, obesity, and is a never smoker. He does not follow with a mail list librarian. Dr. Faulkner manages his asthma on an outpatient basis. He normally takes albuterol HFA as needed, Singulair, and Symbicort inhaler during the winter months when he usually has exacerbations. Patient presented to emergency room last night with chief complaint of shortness of breath and wheezing starting yesterday. He is found to be hypoxic, with an SpO2 of 89% after ambulation. He denies fever, chills, productive cough, chest pain. He does have a nonproductive cough, worse at night. He denies sick contacts. He is currently resting in bed, on 6 L nasal cannula, in no acute distress. Lung sounds are diminished with a faint expiratory wheeze. Chest x- ray on arrival showed no acute cardiopulmonary process. D-dimer was 1.27. A follow-up Chest CTA was negative for pulmonary embolism, did show some subsegmental atelectasis without focal consolidation. CBC was unremarkable. BMP showed a sodium 139, potassium 3.4, chloride 107, serum CO2 20, BUN 23, creatinine 0.83, glucose 118. Troponin negative 1. NT proBNP low. Vital signs are stable. Review of Systems REVIEW OF SYSTEMS: CONSTITUTIONAL: Denies any recent significant weight loss or weight gain. EYES: Denies change in vision. EARS, NOSE, MOUTH, THROAT: Denies headaches, denies sore throat. CARDIOVASCULAR: Denies chest pain, palpitations or syncopal episodes. RESPIRATORY: See HPI GASTROINTESTINAL: Denies change in appetite, abdominal pain, nausea and vomit ing, or diarrhea GENITOURINARY: Denies hematuria, denies infections. MUSKULOSKELETAL: Denies pain, denies swelling. INTEGUMENTARY: Denies rash, denies eczema. NEUROLOGICAL: Denies recent memory loss, no recent seizure activity. PSYCHIATRIC: Denies anxiety, denies depression. HEMATOLOGIC/LYMPHATIC: Denies anemia, denies enlarged lymph node Past Medical History Past Medical History: Asthma, Hypertension History of Any Multi-Drug Resistant Organisms: None Reported Past Surgical History: Hernia Repair Past Psychological History: No Psychological Hx Reported Smoking Status: Never smoker Past Alcohol Use History: Occasional Medications and Allergies Home Medications Medication Instructions Recorded Confirmed Type Montelukast [Singulair] 10 mg PO HS 02/23/18 07/13/22 History Albuterol Sulfate [Proventil Hfa] 2 puff INHALATION RT-Q6H PRN 07/13/22 07/13/22 History Candesartan/Hydrochlorothiazid 1 tab PO DAILY 07/13/22 07/13/22 History [Candesartan-Hctz 32-25 mg Tab] Ibuprofen [Motrin Ib] 600 mg PO DAILY PRN 07/13/22 07/13/22 History methylPREDNISolone Dose Pack 4 mg PO DIRECTED #1 packet 07/13/22 Rx [Medrol Dose Pack] Allergies Allergy/AdvReac Type Severity Reaction Status Date / Time codeine AdvReac Nausea & Verified 07/13/22 21:28 Vomiting propoxyphene AdvReac Nausea & Verified 07/13/22 21:28 [From María Elenat-N 100] Vomiting Physical Exam Vitals: Vital Signs Temp Pulse Pulse Resp BP BP Pulse Ox 07/13/22 23:25 98.7 F 106 H 18 120/68 92 L 07/13/22 23:00 105 H 18 112/73 93 L 07/13/22 21:30 112 H 18 112/65 94 L 07/13/22 20:40 120 H 07/13/22 20:05 94 07/13/22 19:32 98.3 F 113 H 24 133/71 90 L Intake and Output 07/13/22 07/13/22 07/14/22 14:59 22:59 06:59 Other: Weight 108.862 kg GENERAL EXAM: Alert, 46-year-old male , comfortable in no apparent distress. HEAD: Normocephalic and atraumatic EYES: Normal reaction of pupils, equal size. NOSE: Clear with pink turbinates. THROAT: No erythema or exudates. NECK: No masses, no JVD. CHEST: No chest wall deformity. LUNGS: Lung sounds are diminished with faint bilateral end expiratory wheezes. no crackles, rhonchi or dullness. On 6 L nasal cannula. No conversational dyspnea or accessory muscle use.. CVS: S1 and S2 normal with no audible murmur, regular rhythm. No extra heart sounds ABDOMEN: No hepatosplenomegaly, active bowel sounds, no guarding or rigidity. SPINE: No scoliosis or deformity SKIN: No rashes CENTRAL NERVOUS SYSTEM: No focal deficits, tone is normal in all 4 extremities. EXTREMITIES: There is no peripheral edema, clubbing, or cyanosis. Peripheral pulses are intact. Results - Laboratory Findings CBC and BMP: 07/13/22 19:50 07/13/22 19:52 PT/INR, D-dimer PT 10.2 sec (9.0-12.0) 07/13/22 19:52 INR 1.0 (<1.2) 07/13/22 19:52 D-Dimer 1.27 mg/L FEU (<0.60) H 07/13/22 19:52 Abnormal lab findings: Abnormal Labs 07/13/22 07/13/22 07/13/22 19:50 19:52 19:52 Lymphocytes # 0.5 L D-Dimer 1.27 H Potassium 3.4 L Carbon Dioxide 20 L BUN 23 H Glucose 118 H - Diagnostic Findings Chest x-ray: image reviewed CT scan - chest: image reviewed Assessment and Plan Assessment: Acute asthma exacerbation Acute hypoxic respiratory failure secondary to above, currently on 6 L nasal cannula Hypertension Obesity, with a BMI of 31 Plan: Patient's medications, labs, chest x-ray, chest CTA reviewed Start patient on DuoNeb inhalation, budesonide inhalation Start IV Solu-Medrol Continue supplemental oxygen maintain oxygen saturation 92% or greater Check for COVID-19, influenza We will continue to follow I have personally seen and examined the patient, performed the documentation and the assessment and plan as written. Number of minutes spent on the visit:20 Residual joint evaluation done with the nurse practitioner. The patient was hospitalized for an acute asthma exacerbation. The patient has been maintained on Symbicort on an outpatient basis. The exact trigger for her at asthma exacerbation is not clear. The CAT scan of the chest shows no evidence of any pneumonia. He is already feeling better. We'll gradually wean down FiO2 and try to bring it down to room air oxygen. He is on IV Solu-Medrol. He is on bronchodilators. He is on Pulmicort Respules. Awaiting the influenza and her Covid 19 screen. We'll continue to follow. Evaluation was done >30 min Time with Patient: Greater than 30
[2022-07-14] MEDS: methylPREDNISolone SOD SUCCI 125 MG/2 ML VIAL IV SCH ×3 (05:43→18:18)
[2022-07-14] MEDS: BUDESONIDE 1 MG/2 ML NEBU INHALATION SCH ×2 (09:21→20:41)
[2022-07-14] MEDS: IPRATROPIUM-ALBUTEROL 3 ML NEB INHALATION SCH ×4 (09:22→20:41)
--- NOTE | 2022-07-14 13:55 | P.HPIM ---
History of Present Illness H&P Date: 07/14/22 History of present illness; Patient is a 46-year-old white male with past medical history significant for asthma, hypertension, obesity who presented to the ER because of worsening shortness of breath. Shortness of breath has been worsening over the last 2 days, states he gets short of breath on exertion. Complaining of chest congestion, denies any cough. Denies any complaint of fever or chills. He normally takes albuterol HFA as needed, Singulair, and Symbicort inhaler during the winter months when he usually has exacerbations. Because of worsening shortness of breath patient came to the ER. Chest x-ray on arrival showed no acute cardiopulmonary process. D-dimer was 1.27. A follow-up Chest CTA was negative for pulmonary embolism, did show some subsegmental atelectasis without focal consolidation. CBC was unremarkable. BMP showed a sodium 139, potassium 3.4, chloride 107, serum CO2 20, BUN 23, creatinine 0.83, glucose 118. Troponin negative 1. NT proBNP low. Vital signs are stable. Patient admitted for further evaluation and treatment REVIEW OF SYSTEMS: CONSTITUTIONAL: No fever, no malaise, no fatigue. HEENT: No recent visual problems or hearing problems. Denied any sore throat. CARDIOVASCULAR: No chest pain, orthopnea, PND, no palpitations, no syncope. PULMONARY: As mentioned in HPI GASTROINTESTINAL: No diarrhea, no nausea, no vomiting, no abdominal pain. NEUROLOGICAL: No headaches, no weakness, no numbness. HEMATOLOGICAL: Denies any bleeding or petechiae. GENITOURINARY: Denies any burning micturition, frequency, or urgency. MUSCULOSKELETAL/RHEUMATOLOGICAL: Denies any joint pain, swelling, or any muscle pain. ENDOCRINE: Denies any polyuria or polydipsia. The rest of the 14-point review of systems is negative. PHYSICAL EXAMINATION: GENERAL: The patient is alert and oriented x3, not in any acute distress. Well developed, well nourished. HEENT: Pupils are round and equally reacting to light. EOMI. No scleral icterus. No conjunctival pallor. Normocephalic, atraumatic. No pharyngeal erythema. No thyromegaly. CARDIOVASCULAR: S1 and S2 present. No murmurs, rubs, or gallops. PULMONARY: Chest is clear to auscultation, no wheezing or crackles. ABDOMEN: Soft, nontender, nondistended, normoactive bowel sounds. No palpable organomegaly. MUSCULOSKELETAL: No joint swelling or deformity. EXTREMITIES: No cyanosis, clubbing, or pedal edema. NEUROLOGICAL: Gross neurological examination did not reveal any focal deficits. SKIN: No rashes. Assessment and plan Acute asthma exacerbation Acute hypoxic respiratory failure secondary to above, currently on 6 L nasal cannula Hypertension Obesity, with a BMI of 31 Plan; Monitor vital signs Monitor CBC Monitor CMP Aggressive bronchopulmonary hygiene Continue oxygen supplementation Continue breathing treatments Continue IV steroids Pulmonary consulted DVT prophylaxis: Past Medical History Past Medical History: Asthma, Hypertension History of Any Multi-Drug Resistant Organisms: None Reported Past Surgical History: Hernia Repair Past Psychological History: No Psychological Hx Reported Smoking Status: Never smoker Past Alcohol Use History: Occasional Medications and Allergies Home Medications Medication Instructions Recorded Confirmed Type Montelukast [Singulair] 10 mg PO HS 02/23/18 07/13/22 History Albuterol Sulfate [Proventil Hfa] 2 puff INHALATION RT-Q6H PRN 07/13/22 07/13/22 History Candesartan/Hydrochlorothiazid 1 tab PO DAILY 07/13/22 07/13/22 History [Candesartan-Hctz 32-25 mg Tab] Ibuprofen [Motrin Ib] 600 mg PO DAILY PRN 07/13/22 07/13/22 History methylPREDNISolone Dose Pack 4 mg PO DIRECTED #1 packet 07/13/22 Rx [Medrol Dose Pack] Allergies Allergy/AdvReac Type Severity Reaction Status Date / Time codeine AdvReac Nausea & Verified 07/13/22 21:28 Vomiting propoxyphene AdvReac Nausea & Verified 07/13/22 21:28 [From María Elenat-N 100] Vomiting Physical Exam Vitals: Vital Signs Temp Pulse Pulse Resp BP BP Pulse Ox 07/14/22 09:33 90 07/14/22 09:22 90 07/14/22 08:00 83 18 07/14/22 07:00 98.2 F 83 18 115/56 93 L 07/14/22 02:20 98.1 F 102 H 17 107/62 92 L 07/13/22 23:25 98.7 F 106 H 18 120/68 92 L 07/13/22 23:00 105 H 18 112/73 93 L 07/13/22 21:30 112 H 18 112/65 94 L 07/13/22 20:40 120 H 07/13/22 20:05 94 07/13/22 19:32 98.3 F 113 H 24 133/71 90 L Intake and Output 07/13/22 07/14/22 07/14/22 22:59 06:59 14:59 Intake Total 240 Balance 240 Intake: Oral 240 Other: # Voids 1 1 Weight 108.862 kg Results CBC & Chem 7: 07/13/22 19:50 07/13/22 19:52 Labs: Abnormal Lab Results - Last 24 Hours (Table) 07/13/22 07/13/22 07/13/22 Range/Units 19:50 19:52 19:52 Lymphocytes # 0.5 L (1.0-4.8) k/uL D-Dimer 1.27 H (<0.60) mg/L FEU Potassium 3.4 L (3.5-5.1) mmol/L Carbon Dioxide 20 L (22-30) mmol/L BUN 23 H (9-20) mg/dL Glucose 118 H (74-99) mg/dL
[2022-07-14] MEDS: SODIUM CHLORIDE 0.9% 1,000 ML IV SCH (19:46)
[2022-07-14] MEDS ORDERED: MONTELUKAST 10 MG TAB PO SCH (21:00)
[2022-07-15] MEDS: methylPREDNISolone SOD SUCCI 125 MG/2 ML VIAL IV SCH ×2 (00:31→05:54)
[2022-07-15 07:58] VITALS: BP 129/75; RESP 20; TEMP 97.3
[2022-07-15] MEDS ORDERED: hydroCHLOROthiazide 25 MG TAB PO SCH (09:00)
[2022-07-15] MEDS ORDERED: LOSARTAN 50 MG TAB PO SCH (09:00)
[2022-07-15] MEDS: IPRATROPIUM-ALBUTEROL 3 ML NEB INHALATION SCH ×2 (11:20→11:22)
[2022-07-15] MEDS: BUDESONIDE 1 MG/2 ML NEBU INHALATION SCH (11:20)
[2022-07-15 11:24] VITALS: PULSE 100
--- NOTE | 2022-07-15 12:25 | P.DS ---
Providers Date of admission: 07/13/22 22:36 Expected date of discharge: 07/15/22 Attending physician: Jitendra Muñoz Consults: 07/13/22 22:35 Consult Physician Routine Consulting Provider: Feliciano Alvarez Reason/Comments: hypoxia Do you want consulting provider notified?: Yes Primary care physician: Rasheed Faulkner [place] [facility] Course: Discharge diagnoses; Acute asthma exacerbation Acute hypoxic respiratory failure secondary to above, currently on 6 L nasal cannula Hypertension Obesity, with a BMI of 31 Hospital course; Patient is a 46-year-old white male with past medical history significant for asthma, hypertension, obesity who presented to the ER because of worsening shortness of breath. Shortness of breath has been worsening over the last 2 days, states he gets short of breath on exertion. Complaining of chest congestion, denies any cough. Denies any complaint of fever or chills. He normally takes albuterol HFA as needed, Singulair, and Symbicort inhaler during the winter months when he usually has exacerbations. Because of worsening shortness of breath patient came to the ER. Chest x-ray on arrival showed no acute cardiopulmonary process. D-dimer was 1.27. A follow-up Chest CTA was negative for pulmonary embolism, did show some subsegmental atelectasis without focal consolidation. CBC was unremarkable. BMP showed a sodium 139, potassium 3.4, chloride 107, serum CO2 20, BUN 23, creatinine 0.83, glucose 118. Troponin negative 1. NT proBNP low. Vital signs are stable. Patient admitted for further evaluation and treatment 07/25. Patient seen and examined. Not requiring any oxygen. Wheezing has improved. Being discharged on albuterol, Symbicort and Medrol Dosepak. Outpatient follow-up with pulmonary PHYSICAL EXAMINATION: GENERAL: The patient is alert and oriented x3, not in any acute distress. Well developed, well nourished. HEENT: Pupils are round and equally reacting to light. EOMI. No scleral icterus. No conjunctival pallor. Normocephalic, atraumatic. No pharyngeal erythema. No thyromegaly. CARDIOVASCULAR: S1 and S2 present. No murmurs, rubs, or gallops. PULMONARY: Chest is clear to auscultation, no wheezing or crackles. ABDOMEN: Soft, nontender, nondistended, normoactive bowel sounds. No palpable organomegaly. MUSCULOSKELETAL: No joint swelling or deformity. EXTREMITIES: No cyanosis, clubbing, or pedal edema. NEUROLOGICAL: Gross neurological examination did not reveal any focal deficits. SKIN: No rashes. Patient Condition at Discharge: Fair Plan - Discharge Summary New Discharge Prescriptions: New methylPREDNISolone Dose Pack [Medrol Dose Pack] 4 mg PO DIRECTED #1 packet Budesonide-Formot 160-4.5 Mcg [Symbicort 160-4.5 Mcg Inhaler] 2 puff INHALATION BID #1 each Continue Montelukast [Singulair] 10 mg PO HS Ibuprofen [Motrin Ib] 600 mg PO DAILY PRN PRN Reason: Pain Candesartan/Hydrochlorothiazid [Candesartan-Hctz 32-25 mg Tab] 1 tab PO DAILY Albuterol Sulfate [Proventil Hfa] 2 puff INHALATION RT-Q6H PRN PRN Reason: Shortness Of Breath Discharge Medication List Montelukast [Singulair] 10 mg PO HS 02/23/18 [History] Albuterol Sulfate [Proventil Hfa] 2 puff INHALATION RT-Q6H PRN 07/13/22 [History] Candesartan/Hydrochlorothiazid [Candesartan-Hctz 32-25 mg Tab] 1 tab PO DAILY 07/13/22 [History] Ibuprofen [Motrin Ib] 600 mg PO DAILY PRN 07/13/22 [History] methylPREDNISolone Dose Pack [Medrol Dose Pack] 4 mg PO DIRECTED #1 packet 07/13/22 [Rx] Budesonide-Formot 160-4.5 Mcg [Symbicort 160-4.5 Mcg Inhaler] 2 puff INHALATION BID #1 each 07/15/22 [Rx] Follow up Appointment(s)/Referral(s): Rasheed Faulkner DO [Primary Care Provider] - 1-2 days Eliana Castanon MD [STAFF PHYSICIAN] - 1 Week Patient Instructions/Handouts: Asthma (ED) Discharge Disposition: HOME SELF-CARE
--- NOTE | 2022-07-15 12:38 | P.PN ---
Subjective Progress Note Date: 07/15/22 I'm seeing this patient in new consultation today 07/14/2022 for an acute asthma exacerbation. Patient is a 46-year-old white male with past medical history significant for asthma, hypertension, obesity, and is a never smoker. 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 Dr. Faulkner manages his asthma on an outpatient basis. He normally takes albuterol HFA as needed, Singulair, and Symbicort inhaler during the winter months when he usually has exacerbations. Patient presented to emergency room last night with chief complaint of shortness of breath and wheezing starting yesterday. He is found to be hypoxic, with an SpO2 of 89% after ambulation. He denies fever, chills, productive cough, chest pain. He does have a nonproductive cough, worse at night. He denies sick co ntacts. He is currently resting in bed, on 6 L nasal cannula, in no acute distress. Lung sounds are diminished with a faint expiratory wheeze. Chest x- ray on arrival showed no acute cardiopulmonary process. D-dimer was 1.27. A follow-up Chest CTA was negative for pulmonary embolism, did show some subsegmental atelectasis without focal consolidation. CBC was unremarkable. BMP showed a sodium 139, potassium 3.4, chloride 107, serum CO2 20, BUN 23, creatinine 0.83, glucose 118. Troponin negative 1. NT proBNP low. Vital signs are stable. On today's evaluation of 07/15/2022, the patient is much and also the patient's has no specific complaints otherwise for now. We'll make arrangements for possible discharge today. Note that the patient is actually patient is also improved and the patient is currently on room air oxygen. Is able to maintain a pulse ox of about 90%. Objective - Vital Signs Vital signs: Vital Signs Temp 97.3 F L 07/15/22 07:00 Pulse 100 07/15/22 11:35 Resp 20 07/15/22 08:00 BP 129/75 07/15/22 07:00 Pulse Ox 92 L 07/15/22 07:00 FiO2 Intake & Output 07/14/22 07/15/22 07/15/22 18:59 06:59 18:59 Intake Total 480 118 Balance 480 118 Intake: Oral 480 118 Other: Voiding Method Toilet Toilet # Voids 1 3 - Exam GENERAL EXAM: Alert, 46-year-old male , comfortable in no apparent distress. HEAD: Normocephalic and atraumatic EYES: Normal reaction of pupils, equal size. NOSE: Clear with pink turbinates. THROAT: No erythema or exudates. NECK: No masses, no JVD. CHEST: No chest wall deformity. LUNGS: Lung sounds are diminished with faint bilateral end expiratory wheezes. no crackles, rhonchi or dullness. On 6 L nasal cannula. No conversational dyspnea or accessory muscle use.. CVS: S1 and S2 normal with no audible murmur, regular rhythm. No extra heart sounds ABDOMEN: No hepatosplenomegaly, active bowel sounds, no guarding or rigidity. SPINE: No scoliosis or deformity SKIN: No rashes CENTRAL NERVOUS SYSTEM: No focal deficits, tone is normal in all 4 extremities. EXTREMITIES: There is no peripheral edema, clubbing, or cyanosis. Peripheral pulses are intact. - Labs CBC & Chem 7: 07/13/22 19:50 07/13/22 19:52 Assessment and Plan Assessment: Acute asthma exacerbation Acute hypoxic respiratory failure secondary to above, currently on room air oxygen and the patient's acute hypoxic respiratory failure is improved Hypertension Obesity, with a BMI of 31 Plan: Clinically improved Oxygenation improved and the patient is currently on room air oxygen Prednisone burst taper at time of discharge starting with 40 mg Symbicort as maintenance 2 puffs twice a day and albuterol rescue inhaler Cleared for discharge from the pulmonary standpoint
== END 2022-07-15 13:15 | disposition home or self-care (01) ==
LOC: EC 19:30 → 6NMEDSUR 22:36
PROVIDERS: ADMIT Hospitalist; ATTEND Hospitalist
DX: J45.901 Unspecified asthma with (acute) exacerbation (principal); J96.01 Acute respiratory failure with hypoxia; I10 Essential (primary) hypertension; E66.9 Obesity, unspecified; Z68.31 Body mass index [BMI] 31.0-31.9, adult; Z98.890 Other specified postprocedural states; Z20.822 Contact with and (suspected) exposure to COVID-19; Z79.899 Other long term (current) drug therapy; Z88.5 Allergy status to narcotic agent
CPT/HCPCS: 96376 ×2; 96375; 96374; 99285; 36415; 94640 ×4; 93005; 85379; 83880; 80053; 83605; 83735; 84484; 85025; 85610; 85730; 87636; 71046; 71275; G0378 ×3; J1100; J2930 ×2; Q9967

== ENCOUNTER → 2023-03-05 | Outpatient (CLI) | payer MEDICAID ==
--- NOTE | 2023-03-05 17:57 | XR ---
EXAMINATION TYPE: XR chest 2V DATE OF EXAM: 03/05/2023 3:43 PM CLINICAL INDICATION:Male, 47 years old with history of J18.9; COMPARISON: Chest radiographs from 07/13/2022. TECHNIQUE: XR chest 2V Frontal and lateral views of the chest. FINDINGS: Lungs/Pleura: There is no evidence of pleural effusion, focal consolidation, or pneumothorax. Pulmonary vascularity: Unremarkable. Heart/mediastinum: Cardiomediastinal silhouette is enlarged and stable. Musculoskeletal: No acute osseous pathology. IMPRESSION: No acute cardiopulmonary disease/process.
== END | disposition home or self-care (01) ==
LOC: RADXRMAIN 15:32
PROVIDERS: ATTEND Family Medicine
DX: J18.9 Pneumonia, unspecified organism (principal)
CPT/HCPCS: 71046